=== PATIENT | male | born 1945 | race Caucasian/White ===

== ENCOUNTER 2022-12-24 14:40 | Outpatient (AMB) | payer OTHER, SELFPAY ==
[2022-12-24 14:43] VITALS: BP 128/77; PULSE 85; O2SAT 94; BMI 34.7
--- NOTE | 2022-12-24 14:43 | MHC.OFFVIS ---
Intake Vital Signs 12/24/22 14:43 Height 6 ft Weight 255 lb 11.779 oz BMI 34.7 BP 128/77 Blood Pressure Location Rt brachial Position Sitting Pulse 85 Pulse Source Doppler Pulse Oximetry (%) 94 Oxygen Delivery Method Room Air Intake Visit Reasons: Shortness of breath Allergies Sulfa (Sulfonamide Antibiotics) [SULFA (SULFONAMIDE ANTIBIOTICS)] Allergy (Unknown, Verified 12/24/22 14:47) UNKNOWN tetrabenazine [TETRABENAZINE] Allergy (Unknown, Verified 12/24/22 14:47) UNKNOWN HPI Shortness of breath HPI Details 77-year-old gentleman, former 40+ pack-year smoker, quit 2012, with underlying at least moderate COPD with last PFT in 2020 in [place], referred for evaluation of his pulmonary concerns. Patient has been complaining of slowly worsening dyspnea on exertion over the last 10 years. He has been using Wixela 250, Spiriva, and albuterol MDI with suboptimal control of his symptoms. He also has remote history of obstructive sleep apnea, currently not on CPAP therapy. Patient does not have recent chest imaging. He is also followed by [facility] for the history of for cardiac stenting approximately 12 years prior. In office supplemental oxygen evaluation/6 minute walk test performed and patient requires supplemental oxygen at 2 L continuous flow to maintain normal oximetry with exertion. He denies recent acute exacerbations. 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 [facility] Social History (Updated 12/24/22 @ 14:49 by Shena Dee Jamison) Patient Tobacco Use Status: Former Tobacco user Cigarette Packs Per Day: 1 Years Smoked: 45+ Review of Systems Const Reports daytime sleepiness, Denies excessive sweating, Reports fatigue, Denies fever(s), Denies lethargy, Denies malaise, Denies night sweats, Denies snoring and Denies weight loss Eyes Denies blurry vision and Denies itchy eyes ENT Denies nasal congestion, Denies post nasal drip, Denies sinus pain, Denies sinus pressure and Denies other ( Thrush) Card Denies chest pain, Denies pedal edema, Denies dyspnea, Reports dyspnea on exertion, Denies orthopnea and Denies paroxysmal nocturnal dyspnea Resp Denies cough, Denies hemoptysis, Denies excessive phlegm production, Denies dyspnea, Reports dyspnea on exertion, Denies snoring and Denies wheezing GI Denies abdominal pain and Denies heartburn Musc Denies myalgias, Denies arthralgias and Denies joint swelling Skin/Breast Denies rash Neuro Denies memory loss and Denies seizure-like activity Psych Denies abnormal sleep pattern, Denies anxiety and Denies memory loss Endo Denies excessive sweating, Reports fatigue and Denies heat intolerance Luis Fernando/Lymph Denies easy bruising Aller/Immun Denies itchy eyes, Denies seasonal rhinorrhea and Denies wheezing Physical Exam Vital Signs: Last Vital Signs Pulse 85 12/24/22 14:43 BP 128/77 12/24/22 14:43 Pulse Ox 94 12/24/22 14:43 Oxygen Delivery Method Room Air 12/24/22 14:43 BMI result Body Mass Index 34.7 Const General: no acute distress and alert Nutritional Appearance: obese Orientation/consciousness: Other orientation findings ( oriented) HEENT Head: Yes atraumatic Eyes General: appearance normal, both eyes and all related structures Sclerae: sclerae normal EOM: EOMs intact bilaterally Neck Neck: Yes supple Lymphatic: no lymphadenopathy noted Resp Effort & Inspection: normal respiratory effort and no use of accessory muscles Auscultation: clear to auscultation bilaterally Cardio Rate: regular rate Rhythm: regular rhythm Heart sounds: no gallops, no murmurs and no rubs Skin General skin exam: other ( warm) Extrem General: No clubbing, No cyanosis and Yes edema (Trace bilateral) Office Procedures 6 Minute Walk Time:: 15:15 SPO2 % at rest: 93 Pulse at rest: 80 SPO2 % during excercise: 83 (Patient ambulated on level ground with the use of a walker, after walking 200ft, O2 sat decreased to 83% stopped O2 applied at 2lpm cont flow O2 sat increased to 93%) Pulse during excercise: 102 SPO2 % after excercise: 93 Pulse after excercise: 100 Distance in yards walked: 200 Carmen Score: 9 Supplemental Oxygen: Patient placed on 2lpm O2 after O2 sat decreased to 83%, O2 sats stable with O2 @ 2lpm at 93% recommend O2 at 2lpm with exertion. Dr. Leblanc aware of results. 52008 - 6 Minute Walk Assessment & Plan Assessment & Plan (1) COPD (chronic obstructive pulmonary disease): Code(s): J44.9 - Chronic obstructive pulmonary disease, unspecified Plan: Underlying at least moderate COPD suboptimally controlled on Wixela 250, Spiriva, and albuterol MDI. Continue current regimen. Will obtain full PFT. Will consider adding theophylline. Results of cardiac test requested from [facility] cardiology (2) Personal history of nicotine dependence: Code(s): Z87.891 - Personal history of nicotine dependence Plan: Will obtain CT chest for lung cancer screening. (3) YOLANDA (obstructive sleep apnea): Code(s): G47.33 - Obstructive sleep apnea (adult) (pediatric) Plan: Underlying history of obstructive sleep apnea with removed a sleep study currently not on CPAP therapy. Unrestful sleep, daytime somnolence. Will obtain home sleep study for further evaluation. [place] Sleepiness Scale score of 16. (4) Supplemental oxygen dependent: Code(s): Z99.81 - Dependence on supplemental oxygen Plan: In office supplemental oxygen/6 minute walk test performed. Patient requires supplemental oxygen at 2 L continuous flow to maintain normal oximetry with exertion. Order placed with [employer]. Orders: Orders PFT pulmonary function test Today J44.9 - Chronic obstructive pulmonary disease, unspecified CT chest wo IV con Today Z87.891 - Personal history of nicotine dependence RT home sleep study Today G47.33 - Obstructive sleep apnea (adult) (pediatric) Coding Level of Care Code New Pt Level 5 (38755) Diagnoses COPD (chronic obstructive pulmonary disease) J44.9 Personal history of nicotine dependence Z87.891 YOLANDA (obstructive sleep apnea) G47.33 Supplemental oxygen dependent Z99.81 CPT Codes Coding ([id number])
[2022-12-24 15:39] VITALS: PULSE 80; O2SAT 93
== END 2022-12-24 15:34 | disposition home or self-care (01) ==
PROVIDERS: PCP Internal Medicine; Referring Provider Nurse Practitioner Family; Visit Provider Internal Medicine Pulmonary Disease
DX: J44.9 Chronic obstructive pulmonary disease, unspecified (principal); Z87.891 Personal history of nicotine dependence; G47.33 Obstructive sleep apnea (adult) (pediatric); Z99.81 Dependence on supplemental oxygen
CPT/HCPCS: 94618; 99204

== ENCOUNTER → 2022-12-24 14:40 | Outpatient (BNVA) | payer OTHER, SELFPAY | PROVIDERS: PCP Internal Medicine; Visit Provider Internal Medicine Pulmonary Disease | DX: J44.9 Chronic obstructive pulmonary disease, unspecified (principal); G47.33 Obstructive sleep apnea (adult) (pediatric); Z87.891 Personal history of nicotine dependence; Z99.81 Dependence on supplemental oxygen | CPT/HCPCS: 94618 ==

== ENCOUNTER → 2023-02-04 12:39 | Outpatient (REF) | payer OTHER, SELFPAY ==
--- NOTE | 2023-02-04 13:49 | PFT_ITS ---
Indication: COPD Spirometry [FEV1 to FVC 64%; with an FEV1 of 2.34 years her 4% predicted; FVC 3.67 L without reversibility. No significant response to bronchodilators noted. Maximum voluntary ventilation 78% predicted] Lung Volumes [Total lung capacity 82% predicted with residual volume 86% predicted] Diffusion Capacity [DLCO 40% predicted] Comparisons None Interpretation [There is an obstructive ventilatory defect consistent with mild COPD. No significant response to bronchodilators noted. Mild decrease in maximum voluntary ventilation secondary to likely deconditioning. Lung volumes are low normal. The patient does have a moderate to severe diffusion impairment. Need to consider underlying emphysematous changes and or other parenchymal lung conditions. Need to also correct for hemoglobin. Clinical correlation warranted. MTDD
== END ==
LOC: HO.SL 12:39
PROVIDERS: PCP Internal Medicine; Visit Provider Internal Medicine Pulmonary Disease
DX: J44.9 Chronic obstructive pulmonary disease, unspecified (principal); G47.33 Obstructive sleep apnea (adult) (pediatric)
CPT/HCPCS: 94010; 94727; 94729

== ENCOUNTER → 2023-03-18 15:55 | Outpatient (REF) | payer OTHER, SELFPAY | LOC: HO.SL 15:55 | PROVIDERS: PCP Internal Medicine; Visit Provider Internal Medicine Pulmonary Disease | DX: G47.33 Obstructive sleep apnea (adult) (pediatric) (principal); R06.83 Snoring; R40.0 Somnolence | CPT/HCPCS: 95806 ==

== ENCOUNTER → 2023-03-18 16:00 | Outpatient (BNV) | payer OTHER, SELFPAY | PROVIDERS: PCP Internal Medicine; Visit Provider Internal Medicine | DX: R06.83 Snoring (principal) | CPT/HCPCS: 95806 ==